=== PATIENT | male | born 1980 | race Two or more races ===

== ENCOUNTER 2020-05-25 01:39 | Emergency (ER) | payer OTHER ==
[~2020-05-25] VITALS: Ht 177.8 cm; Wt 83.5 kg
[2020-05-25] MEDS ORDERED: CLONAZEPAM1 MG (01:49)
== END 2020-05-25 09:56 | disposition home or self-care (01) ==
LOC: ER 01:39
DX: N50.811 Right testicular pain (principal); R10.2 Pelvic and perineal pain; Z03.818 Encounter for observation for suspected exposure to other biological agents ruled out

== ENCOUNTER 2021-12-28 01:46 | Emergency (ER) | payer OTHER ==
[~2021-12-28] VITALS: Ht 180.3 cm; Wt 85.7 kg
[~2021-12-28 01:46] MED LIST: CLONAZEPAM1 MG
[2021-12-28] MEDS ORDERED: CLONAZEPAM2 MG (02:12)
== END 2021-12-28 07:20 | disposition home or self-care (01) ==
LOC: ER 01:46
DX: F41.9 Anxiety disorder, unspecified (principal)

== ENCOUNTER → 2022-01-16 | Emergency (ER) | payer OTHER ==
[~2022-01-16] MED LIST changes: +CLONAZEPAM2 MG; +DOLOGEN CAPLET1 EACH PO; +MEDROLPACK PO; +OSEL75CA PO; +TUSNEL LIQUID178 ML PO; +XOPENEX0.63 MG/3 IH
== END | disposition home or self-care (01) ==
LOC: ER 22:11
DX: J10.1 Influenza due to other identified influenza virus with other respiratory manifestations (principal); J20.9 Acute bronchitis, unspecified; Z20.822 Contact with and (suspected) exposure to COVID-19

== ENCOUNTER → 2022-01-16 | Emergency (ER) | payer OTHER ==
[~2022-01-16] VITALS: Ht 177.8 cm; Wt 85.7 kg
== END | disposition home or self-care (01) ==
LOC: ER 18:55
DX: J10.1 Influenza due to other identified influenza virus with other respiratory manifestations (principal); R06.02 Shortness of breath

== ENCOUNTER 2022-01-18 05:58 | Emergency (ER) | payer OTHER ==
[~2022-01-18] VITALS: Ht 177.8 cm; Wt 85.7 kg
[~2022-01-18 05:58] MED LIST changes: -MEDROLPACK PO
[2022-01-18] MEDS ORDERED: MEDROLPACK PO (10:45)
== END 2022-01-18 10:49 | disposition home or self-care (01) ==
LOC: ER 05:58
DX: J20.9 Acute bronchitis, unspecified (principal); J10.1 Influenza due to other identified influenza virus with other respiratory manifestations

== ENCOUNTER 2022-05-31 03:18 | Emergency (ER) | payer OTHER ==
[~2022-05-31] VITALS: Ht 177.8 cm; Wt 86.2 kg
[~2022-05-31 03:18] MED LIST changes: +MEDROLPACK PO
[2022-05-31] MEDS ORDERED: CLONAZEPAM2 MG PO (03:41)
[2022-05-31] MEDS ORDERED: KETO10TA2 PO (05:08)
[2022-05-31] MEDS ORDERED: ORPHENADRINE C100 MG PO (05:08)
== END 2022-05-31 05:18 ==
LOC: ER 03:18
DX: S43.409A Unspecified sprain of unspecified shoulder joint, initial encounter (principal); X58.XXXA Exposure to other specified factors, initial encounter; Y93.9 Activity, unspecified; Y92.9 Unspecified place or not applicable; Y99.9 Unspecified external cause status; M62.838 Other muscle spasm

== ENCOUNTER 2022-07-14 01:20 | Emergency (ER) | payer OTHER ==
[~2022-07-14] VITALS: Ht 177.8 cm; Wt 87.5 kg
[~2022-07-14 01:20] MED LIST changes: +CLONAZEPAM2 MG PO; +KETO10TA2 PO; +ORPHENADRINE C100 MG PO
[2022-07-14] MEDS ORDERED: CATAFLAN (01:39)
[2022-07-14] MEDS ORDERED: [UNRECOGNIZED DRUG - OTHER] (01:40)
[2022-07-14] MEDS ORDERED: NABUMETONE750 MG PO (04:18)
[2022-07-14] MEDS ORDERED: NEURONTIN600 M1 PO (04:18)
== END 2022-07-14 04:28 ==
LOC: ER 01:20
DX: M54.30 Sciatica, unspecified side (principal)

== ENCOUNTER 2022-07-30 16:22 | Emergency (ER) | payer OTHER ==
[~2022-07-30] VITALS: Ht 180.3 cm; Wt 99.8 kg
[~2022-07-30 16:22] MED LIST changes: +CATAFLAN; +NABUMETONE750 MG PO; +NEURONTIN600 M1 PO; +[UNRECOGNIZED DRUG - OTHER]
== END 2022-07-30 21:09 | disposition home or self-care (01) ==
LOC: ER 16:22
DX: F10.10 Alcohol abuse, uncomplicated (principal)

== ENCOUNTER 2023-01-12 23:10 | Emergency (ER) | payer OTHER ==
[~2023-01-12] VITALS: Ht 177.8 cm; Wt 72.1 kg
[2023-01-12] MEDS ORDERED: ATIVAN2 M1 (23:31)
[2023-01-12] MEDS ORDERED: PROAIR RESPICL90 MCG (23:31)
[2023-01-12] MEDS ORDERED: SYMBICORT 80/10.2 GM (23:31)
== END 2023-01-13 14:16 | disposition home or self-care (01) ==
LOC: ER 23:10
DX: A05.9 Bacterial foodborne intoxication, unspecified (principal); R19.7 Diarrhea, unspecified; R10.84 Generalized abdominal pain

== ENCOUNTER 2024-09-01 04:45 | Emergency (ER) | payer OTHER ==
[~2024-09-01] VITALS: Ht 170.2 cm; Wt 90.7 kg
[~2024-09-01 04:45] MED LIST changes: +ATIVAN2 M1; +PROAIR RESPICL90 MCG; +SYMBICORT 80/10.2 GM
[2024-09-01] MEDS ORDERED: GUAIFENESIN 200 MG/10 ML BLIST.PACK PO STA (05:43)
[2024-09-01] MEDS ORDERED: ACETAMINOPHEN 500 MG GEL..CAP PO STA (05:44)
[2024-09-01] MEDS ORDERED: ALBUTEROL SULFATE 3 ML/2.5 MG AMPUL.NEB IH SCH (05:45)
[2024-09-01 06:46] LABS: ALBUMIN 3.1 gm/dL (3.4-5.0); BILIRUBIN TOTAL 0.47 mg/dL (0.3-1.2); CALCIUM 8.4 mg/dL (8.5-10.1); CREATININE SERUM 0.88 mg/dL (0.70-1.30); GFR 94.08; GLOBULINA 3.3 G/DL (2.4-3.5); POTASSIUM 3.64 mEq/L (3.5-5.1); TOTAL PROTEIN 6.4 gm/dL (6.4-8.2)
[2024-09-01 06:51] LABS: HEMATOCRIT 38.5 % (39.0-48.0); HEMOGLOBIN 13.4 g/dL (13-16.00); MEAN CELL VOLUME 84.9 fL (80.0-100.00); MEAN CORPUSCULAR HEMOGLOBIN 29.5 pg (27.00-32.0); MEAN CORPUSCULAR HGB CONC 34.7 g/dl (32.0-36.0); PLATELET COUNT 286 K/uL (150-450); RED BLOOD COUNT 4.54 M/uL (4.00-6.00); RED CELL DISTRIBUTION WIDTH 13.2 % (11.5-14.5)
[2024-09-01 06:59] LABS: PH,URINE 6.5 (5.0-8.0); URINE APPEARANCE Clear; URINE BILIRRUBIN Negative (NEGATIVE); URINE BLOOD Negative; URINE COLOR Yellow; URINE GLUCOSE Negative (NEGATIVE); URINE KETONE Negative (NEGATIVE); URINE LEUKOCYTE Negative; URINE NITRATE Negative; URINE PROTEIN Negative (NEGATIVE); URINE UROBILINOGEN 0.2 E.U./dl
[2024-09-01 07:03] LABS: URINE BACTERIA 11.3 uL (0.0-1933); URINE EPITHELIAL CELLS 2.3 uL (0.0-38.8); URINE WBC 3.5 uL (0.0-23.2)
[2024-09-01 07:13] LABS: URINE CAST 0.15 uL (0.0-1.40)
[2024-09-01 07:36] LABS: ABG PH 7.437 (7.35-7.45); ABG pCO2 35.1 mmHg (35-45); BASE EXCESS -0.4 mmol/l; BICARBONATE 23.2 mmol/l (23-25); SaO2 99.5 %; Tco2 24.2 mmol/l
[2024-09-01 07:38] LABS: allen test SATISFACTORY; o2 21 %; puncture site RADIAL RIGHT
[2024-09-01] MEDS ORDERED: DOLOGESIC-DF 51 EACH PO (08:17)
[2024-09-01] MEDS ORDERED: OSEL75CA PO (08:17)
[2024-09-01] MEDS ORDERED: ALBUTEROL2.5 MG/3 M IH (08:17)
[2024-09-01] MEDS ORDERED: BUDESONIDE0.5 MG/2 M IH (08:17)
[2024-09-01] MEDS ORDERED: ZYNCOF 20-400120 ML PO (08:17)
== END 2024-09-01 08:33 ==
LOC: ER 04:47
PROVIDERS: General Practice
DX: J10.1 Influenza due to other identified influenza virus with other respiratory manifestations (principal); R05.8 Other specified cough; R50.9 Fever, unspecified; Z20.822 Contact with and (suspected) exposure to COVID-19

== ENCOUNTER 2025-01-27 20:16 | Emergency (ER) | payer OTHER ==
[~2025-01-27] VITALS: Ht 177.8 cm; Wt 83.5 kg
[~2025-01-27 20:16] MED LIST changes: +ALBUTEROL2.5 MG/3 M IH; +BUDESONIDE0.5 MG/2 M IH; +DOLOGESIC-DF 51 EACH PO; +ZYNCOF 20-400120 ML PO
[2025-01-27] MEDS ORDERED: KETOROLAC TROMETHAMINE 30 MG VIAL IV ONE (20:45)
[2025-01-27] MEDS ORDERED: METHYLPREDNISOLONE SOD SUCC 125 MG VIAL IV ONE (20:45)
[2025-01-27] MEDS ORDERED: 0.9 % SODIUM CHLORIDE 1,000 ML IV ONE (20:45)
[2025-01-27] MEDS ORDERED: IPRATROPIUM BROMIDE 0.5 MG/2.5 ML AMPUL.NEB IH SCH (20:45)
[2025-01-27] MEDS ORDERED: LEVALBUTEROL HCL 1.25 MG/3 ML SOLUTION IH SCH (20:45)
[2025-01-27] MEDS ORDERED: PIPERACILLIN/TAZOBACTAM SODIUM 3.375 GM VIAL IV ONE ×2 (20:45→20:58)
[2025-01-27] MEDS ORDERED: KETOROLAC TROMETHAMINE 30 MG VIAL ONE (20:53)
[2025-01-27] MEDS ORDERED: LEVALBUTEROL HCL 1.25 MG/3 ML SOLUTION IH ONE (20:54)
[2025-01-27] MEDS ORDERED: METHYLPREDNISOLONE SOD SUCC 125 MG VIAL ONE (20:55)
[2025-01-27] MEDS ORDERED: ONDANSETRON HCL 2 MG/ML VIAL IV ONE (21:00)
[2025-01-27] MEDS ORDERED: FAMOtidine 10 MG/ML (4ML VIAL) IV ONE (21:00)
[2025-01-27 23:32] LABS: HEMATOCRIT 41.8 % (39.0-48.0); HEMOGLOBIN 13.8 g/dL (13-16.00); MEAN CELL VOLUME 84.1 fL (80.0-100.00); MEAN CORPUSCULAR HEMOGLOBIN 27.8 pg (27.00-32.0); PLATELET COUNT 437 K/uL (150-450); RED BLOOD COUNT 4.97 M/uL (4.00-6.00); RED CELL DISTRIBUTION WIDTH 13.9 % (11.5-14.5)
[2025-01-27 23:38] LABS: ALBUMIN 3.5 gm/dL (3.4-5.0); BILIRUBIN TOTAL 1.41 mg/dL (0.3-1.2); GFR 81.17; GLOBULINA 3.9 G/DL (2.4-3.5); POTASSIUM 3.51 mEq/L (3.5-5.1); TOTAL PROTEIN 7.4 gm/dL (6.4-8.2)
[2025-01-27 23:48] LABS: ABG PO2 173.6 mmHg (80-100); BASE EXCESS -0.6 mmol/l; BICARBONATE 18.2 mmol/l (23-25); SaO2 99.7 %
[2025-01-27 23:49] LABS: Tco2 18.8 mmol/l; allen test SATISFACTORY; o2 50 %; puncture site BRADIAL RIGHT
[2025-01-28 00:02] LABS: INR 0.96; PARTIAL THROMBOPLASTIN TIME 34.5 SECONDS (22.0-34.0); PROTHROMBIN TIME 10.5 SECONDS (9.0-11.5)
[2025-01-28 06:45] LABS: HEMATOCRIT 37.4 % (39.0-48.0); HEMOGLOBIN 12.9 g/dL (13-16.00); MEAN CORPUSCULAR HEMOGLOBIN 28.7 pg (27.00-32.0); MEAN CORPUSCULAR HGB CONC 34.6 g/dl (32.0-36.0); PLATELET COUNT 388 K/uL (150-450); RED BLOOD COUNT 4.51 M/uL (4.00-6.00)
[2025-01-28] MEDS ORDERED: LEVSIN/SL0.125 MG SL (07:42)
[2025-01-28] MEDS ORDERED: INTESTINEX680 M2 PO (07:42)
[2025-01-28] MEDS ORDERED: ZOFRAN8 MG PO (07:42)
== END 2025-01-28 08:10 ==
LOC: ER 20:16
PROVIDERS: General Practice
DX: R10.32 Left lower quadrant pain (principal); R06.02 Shortness of breath; I88.0 Nonspecific mesenteric lymphadenitis; Z87.09 Personal history of other diseases of the respiratory system